=== PATIENT | male | born 1980 | race Caucasian/White ===

== ENCOUNTER → 2024-05-14 09:09 | Outpatient (CLI) | payer OTHER, SELFPAY ==
[2024-05-14 10:02] LABS: COVID-19 CEPHEID 4-PLEX PCR Negative (Negative); Influenza A - CEPHEID Flu A NEGATIVE (NEGATIVE); Influenza B - CEPHEID Flu B NEGATIVE (NEGATIVE); Respiratory Syncytial Virus Negative (Negative)
== END ==
PROVIDERS: Visit Provider Nurse Practitioner Family
DX: R05.1 Acute cough (principal); B34.9 Viral infection, unspecified; R50.9 Fever, unspecified; R42 Dizziness and giddiness; H53.8 Other visual disturbances
CPT/HCPCS: 0241U

== ENCOUNTER 2024-05-16 10:04 | Emergency (ER) | payer OTHER, SELFPAY ==
[2024-05-16 10:15] VITALS: BP 135/81; PULSE 88; RESP 16; TEMP 36.4; O2SAT 93; BMI 22.9
--- NOTE | 2024-05-16 12:36 | DI.RAD.S_ITS ---
PROCEDURE: XR CHEST 2V INDICATIONS: fever and cough x 1 week TECHNIQUE: 2 views of the chest were acquired. COMPARISON: None. FINDINGS: Surgical changes and devices: None. Lungs and pleura: Moderate diffuse lung disease particularly in the perihilar regions, greater on the left. No drainable effusions. Mediastinum: Normal heart size Bones and chest wall: Unremarkable IMPRESSION: Perihilar moderate lung disease, greater on the left, suspicious for pneumonia. Future imaging surveillance is recommended. Dictated by: Cody Wooten M.D. on 05/16/2024 at 12:52 Approved by: Cody Wooten M.D. on 05/16/2024 at 12:53
--- NOTE | 2024-05-16 12:37 | ED.URI ---
HPI - URI/Sore Throat <Amelia Lundberg PA-C - Last Filed: 05/16/24 16:27> General Chief Complaint: Upper Respiratory Symptoms Stated Complaint: Fever,cough Feeling worse Time Seen by Provider: 05/16/24 12:22 Source: patient Mode of arrival: Ambulatory History of Present Illness HPI Narrative: Mr. Faulkner is a pleasant 43 year old male with no reported PMHx who presents to the ED with cough and intermittent fever x 1 week. Pt was seen at the [facility] on Tuesday for the same symptoms and was diagnosed with viral URI, had a negative covid/flu swab, and was advised supportive care. Reports fever has resolved and he felt slightly better, but today he felt increasing fatigue and his dry cough has persisted. Reports his and daughter were also recently sick with URI's which have gotten better. He denies CP, abd pain, SOB, wheezing, pleuritic pain, vomiting, ear pain. He did have some loose stools which have gotten better. He took tylenol and ibu at 1015. Related Data Previous Rx's Medication Instructions Recorded cefdinir 300 mg capsule 300 mg PO Q12H #20 caps 05/18/24 doxycycline hyclate 100 mg capsule 100 mg PO BID #10 caps 05/18/24 Allergies Allergy/AdvReac Type Severity Reaction Status Date / Time No Known Drug Allergies Allergy Verified 05/18/24 10:33 Review of Systems <Amelia Lundberg PA-C - Last Filed: 05/16/24 16:27> Constitutional Constitutional: Denies chills Eyes Eyes: Denies change in vision ENT Ears, Nose, Mouth, and Throat: Denies change in voice, Denies sore throat and Denies throat swelling Cardiovascular Cardiovascular: Denies chest pain, Denies rapid heart rate, Denies edema, Denies irregular heart rhythm, Denies leg edema, Denies lightheadedness, Denies dyspnea and Denies dyspnea on exertion Respiratory Respiratory: Reports cough, Denies hemoptysis, Denies pain on inspiration, Denies dyspnea, Denies dyspnea on exertion, Denies stridor and Denies wheezing Gastrointestinal Gastrointestinal: Denies abdominal pain Integumentary/Breasts Skin/Breast: Denies rash Allergic/Immunologic Allergic/Immunologic: Denies throat swelling and Denies wheezing Patient History <Amelia Lundberg PA-C - Last Filed: 05/16/24 16:27> Social History Smoking Status: Never smoker Smoking Status: Never smoker alcohol intake frequency: holidays/special occasions only Substance Use Type: does not use Exam <Amelia Lundberg PA-C - Last Filed: 05/16/24 16:27> Initial Vital Signs Initial Vital Signs: Vital Signs Temperature 97.5 F L 05/16/24 10:15 Pulse Rate 88 05/16/24 10:15 Respiratory Rate 16 05/16/24 10:15 Blood Pressure 135/81 05/16/24 10:15 Pulse Oximetry 93 05/16/24 10:15 Oxygen Delivery Method Room Air 05/16/24 10:15 VS reviewed, WNL except for 93% O2 on room air. Const General: cooperative, healthy appearing, comfortable, well developed and well groomed HENNV Head: normal to inspection, normocephalic and atraumatic Ears: hearing grossly normal bilaterally Nose: external nose normal Face and sinus: normal facial exam, sinuses nontender and face symmetric Mouth: oral mucosae normal and moist mucous membranes Throat: posterior oropharynx normal and uvula midline Eyes Conjunctivae: conjunctivae normal Neck Neck: normal visual inspection, full ROM, No anterior neck swelling and No lymphadenopathy Chest Chest: normal inspection of the chest Resp Effort & Inspection: normal respiratory effort, able to speak in complete sentences, no audible wheezes, cough, respiratory effort not decreased, not labored, no nasal flaring, no pursed lip breathing, no respiratory distress, no tripod positioning, no use of accessory muscles and No prolonged expiratory phase Auscultation: breath sounds present Other: mild expiratory course breath sounds BL LL Cardio Rate: regular rate Rhythm: regular rhythm Skin General: no rashes or lesions noted <Olimpia Saba DO - Last Filed: 05/21/24 14:33> Initial Vital Signs Initial Vital Signs: Vital Signs Temperature 97.5 F L 05/16/24 10:15 Pulse Rate 88 05/16/24 10:15 Respiratory Rate 16 05/16/24 10:15 Blood Pressure 135/81 05/16/24 10:15 Pulse Oximetry 93 05/16/24 10:15 Oxygen Delivery Method Room Air 05/16/24 10:15 Course <Amelia Lundberg PA-C - Last Filed: 05/16/24 16:27> Orders Ordered: ED Orders 05/16/24 12:36 XR chest 2V Stat Vital Signs Vital signs: Vital Signs - 8 hr 05/16/24 10:15 05/16/24 13:21 Temperature 97.5 F L Pulse Rate 88 82 Respiratory Rate 16 20 Blood Pressure 135/81 109/67 Pulse Oximetry 93 93 Oxygen Delivery Method Room Air Room Air <Olimpia Jazmin Saba DO - Last Filed: 05/21/24 14:33> Orders Ordered: ED Orders 05/16/24 12:36 XR chest 2V Stat Vital Signs Vital signs: Vital Signs - 8 hr 05/16/24 10:15 05/16/24 13:21 Temperature 97.5 F L Pulse Rate 88 82 Respiratory Rate 16 20 Blood Pressure 135/81 109/67 Pulse Oximetry 93 93 Oxygen Delivery Method Room Air Room Air MDM - URI/Sore Throat <Amelia Lundberg PA-C - Last Filed: 05/16/24 16:27> Medical Records Attestation: I reviewed the patient's medical records. Imaging Data Chest x-ray: My Impression: BL perihilar infiltrates Radiologist's Impression: IMPRESSION: Perihilar moderate lung disease, greater on the left, suspicious for pneumonia. Future imaging surveillance is recommended. [facility] Narrative Medical decision making narrative: 43 year old male with no reported PMHx who presents to the ED with cough and intermittent fever x 1 week. DDx includes but is not limited to: pneumonia, viral URI, pleural effusion, bronchitis, etc. On exam pt is in NAD, 93% O2 on RA, afebrile, not tachycardic. Mild expiratory BL LL course breath sounds. No LE edema. Covid/flu neg on 05/14. Will proceed with chest XR. Chest x-ray confirms pneumonia. Patient's vital signs remained stable. We will treat with doxycycline 100 mg b.i.d. x5 days for community-acquired pneumonia with no underlying lung disease, recent hospitalization, or smoking history. Advised Motrin/ Tylenol if needed for pain /fever, and previously prescribed Tessalon Perles if needed for cough. Patient understands to follow up with his primary care doctor and that he will need a repeat chest x-ray to confirm resolution of pneumonia in the future. Discussed strict ED return precautions. Patient understanding of plan and stable for discharge home. Discharge Plan Departure Patient Disposition: Home Clinical Impression: Pneumonia Qualifiers: Pneumonia type: due to unspecified organism Laterality: bilateral Lung location: unspecified part of lung Qualified Code(s): J18.9 - Pneumonia, unspecified organism Cough Qualifiers: Cough type: acute Qualified Code(s): R05.1 - Acute cough Instructions: DI for Pneumonia -- Adult Activity Restrictions/Additional Instructions: Today you were diagnosed with pneumonia. Please complete the full course of antibiotics and follow up with your primary care doctor within the next week. You will need a repeat chest XR to confirm infection has resolved / no other abnormalities as determined by your PCP. Please return to the ER if you develop any new or worsening symptoms, trouble breathing, chest pain, or other concerns. Prescriptions: No Action doxycycline hyclate 100 mg capsule 100 mg PO BID Qty: 10 0RF cefdinir 300 mg capsule 300 mg PO Q12H Qty: 20 0RF Referrals: Miscellaneous,MD Miriam [Primary Care Provider] - Stand Alone Forms: Patient Portal/API/Survey ED Sign-out <Olimpia Saba DO - Last Filed: 05/21/24 14:33> Cosign ED Attending Cosjerardoature Attestation: I was immediately available in the department for consultation.
[2024-05-16 13:21] VITALS: BP 109/67; PULSE 82; RESP 20; O2SAT 93
== END 2024-05-16 14:08 | disposition home or self-care (01) ==
PROVIDERS: Emergency Provider Physician Assistant
DX: J18.9 Pneumonia, unspecified organism (principal); R05.1 Acute cough
CPT/HCPCS: 71046; 99283

== ENCOUNTER 2024-05-18 10:19 | Emergency (ER) | payer OTHER, SELFPAY ==
[2024-05-18] VITALS (9 sets, daily range): BP systolic 113–143; BP diastolic 73–90; PULSE 77–110; RESP 16–28; TEMP 36.8; O2SAT 94–96; BMI 22.9
--- NOTE | 2024-05-18 10:38 | ED_ITS ---
HPI - SOB/Dyspnea General Chief Complaint: Shortness of Breath/Dyspnea Stated Complaint: hx pneumonia, SOB Time Seen by Provider: 05/18/24 10:37 Source: patient Mode of arrival: Wheelchair Limitations: no limitations History of Present Illness HPI Narrative: Patient is a 43-year-old healthy male who presents today with increasing shortness of breath. Was diagnosed with pneumonia on May 16 by x-ray discharged home with doxycycline for 5 days. Failure he reports that they have been his oxygen level and have noted that his oxygen levels 86-89% while lying down and it does go up when he sits upright. He just generally feels fatigued and weak. No nausea or vomiting. Other family members are sick as well but overall getting better. Patient also reports that he traveled 3 weeks ago to [place]. No prior history of blood clots. Had a 4 pack COVID influenza RSV test 2 days ago was negative. Related Data Previous Rx's Medication Instructions Recorded doxycycline hyclate 100 mg capsule 100 mg PO BID 5 days #10 caps 05/16/24 cefdinir 300 mg capsule 300 mg PO Q12H #20 caps 05/18/24 doxycycline hyclate 100 mg capsule 100 mg PO BID #10 caps 05/18/24 Allergies Allergy/AdvReac Type Severity Reaction Status Date / Time No Known Drug Allergies Allergy Verified 05/18/24 10:33 Patient History Social History Smoking Status: Never smoker Smoking Status: Never smoker alcohol intake frequency: holidays/special occasions only Substance Use Type: does not use Exam Initial Vital Signs Initial Vital Signs: Vital Signs Temperature 98.3 F 05/18/24 10:30 Pulse Rate 92 H 05/18/24 10:30 Respiratory Rate 16 05/18/24 10:30 Blood Pressure 143/90 H 05/18/24 10:30 Pulse Oximetry 94 05/18/24 10:30 Oxygen Delivery Method Room Air 05/18/24 10:30 GENERAL: Alert 43-year-old male appears to not feel well and in no acute distress. HEENT: Head atraumatic,EOMI, pupils reactive, face symmetric, moist mucous membranes CARDIOVASCULAR: Regular rate and rhythm without murmurs, rubs or gallops. RESPIRATORY: No tachypnea mild rales at bases no wheezing ABDOMEN: Soft, nontender. Normoactive bowel sounds all 4 quadrants. No guarding or rebound. EXTREMITIES: Normal range of motion, no clubbing or edema. Neurovascularly intact NEUROLOGICAL: Alert and oriented x4.Normal gait and speech. SKIN: Warm, dry, no laceration, no petechiae, no rashes or lesions. Course Orders Ordered: ED Orders 05/18/24 10:53 Chest [XR chest 1V] Stat 05/18/24 11:04 BNP [NT-proBNP (BNP-Adult 18+)] Stat CBC Auto Diff [Complete Blood Count AUTO DIFF] Stat CMP [Comprehensive Metabolic Panel] Stat D Dimer Stat Lactate (Lactic Acid) Stat Procalcitonin Stat Troponin & CK Cardiac Panel Stat 05/18/24 11:20 Blood Culture Stat 05/18/24 11:33 CT angio chest PE protocol Stat Discontinued Medications Cefdinir (Cefdinir 300 Mg Capsule) 300 mg PO NOW ONE Stop: 05/18/24 12:57 Last Admin: 05/18/24 13:04 Dose: 300 mg Documented By: TC Vital Signs Vital signs: Vital Signs - 8 hr 05/18/24 10:30 05/18/24 10:30 05/18/24 10:40 Temperature 98.3 F Pulse Rate 92 H 88 110 H Respiratory Rate 16 28 H Blood Pressure 143/90 H Pulse Oximetry 94 95 94 Oxygen Delivery Method Room Air 05/18/24 11:00 05/18/24 11:00 05/18/24 11:30 Temperature Pulse Rate 79 Respiratory Rate Blood Pressure 116/74 120/81 Pulse Oximetry 94 Oxygen Delivery Method 05/18/24 11:30 05/18/24 11:59 05/18/24 11:59 Temperature Pulse Rate 81 77 Respiratory Rate 19 Blood Pressure 121/73 Pulse Oximetry 94 96 Oxygen Delivery Method 05/18/24 12:00 05/18/24 12:00 05/18/24 12:30 Temperature Pulse Rate 79 Respiratory Rate 19 Blood Pressure 120/73 113/74 Pulse Oximetry 95 Oxygen Delivery Method 05/18/24 12:30 05/18/24 13:00 05/18/24 13:00 Temperature Pulse Rate 78 77 Respiratory Rate 22 17 Blood Pressure 130/76 Pulse Oximetry 95 95 Oxygen Delivery Method 05/18/24 13:15 Temperature Pulse Rate 77 Respiratory Rate 17 Blood Pressure 130/76 Pulse Oximetry 95 Oxygen Delivery Method Room Air MDM - SOB/Dyspnea Lab Data 05/18/24 11:04 05/18/24 11:04 Labs: Lab Results 05/18/24 Range/Units 11:04 WBC 7.5 (4.5-11.0) X10^3/uL RBC 4.43 L (4.5-5.9) X10^6/uL Hgb 13.0 L (13.5-17.5) g/dL Hct 39.0 L (41-53) % MCV 87.9 (80-100) fL MCH 29.4 (26-34) PG MCHC 33.4 (30-36) % RDW 13.4 (11.6-14.8) % Plt Count 237 (150-400) X10^3/uL Neut % (Auto) Not Reportable Lymph % (Auto) Not Reportable [place] % (Auto) Not Reportable Eos % (Auto) Not Reportable Baso % (Auto) Not Reportable Lymph # (Auto) Not Reportable [place] # (Auto) Not Reportable Baso # (Auto) Not Reportable Total Counted 100 Seg Neutrophils % 55.0 (38-70) % Band Neutrophils % 6.0 (3-7) % Lymphocytes % (Manual) 26.0 (25-45) % Monocytes % (Manual) 4.0 (2-11) % Eosinophils % (Manual) 2.0 (2-4) % Metamyelocytes % 5.0 H (-0) % Myelocytes % 2.0 H (-0) % Neutrophils # (Manual) 4575 (9402-3707) /uL RBC Morphology See below Polychromasia 1+ H D-Dimer 1145 H (<500) ng/ml Sodium 138 (137-145) mmol/L Potassium 4.6 (3.4-5.1) mmol/L Chloride 101 (98-107) mmol/L Carbon Dioxide 31 (22-32) mmol/L BUN 5 L (9-20) mg/dL Creatinine 0.62 L (0.66-1.25) mg/dL Estimated GFR > 60 (>60) mL/min BUN/Creatinine Ratio 8.1 (6-22) Glucose 87 (70-100) mg/dL Lactate 1.5 (0.7-2.1) mmol/L Calcium 8.8 (8.4-10.2) mg/dL Total Bilirubin 0.3 (0.2-1.3) mg/dL AST 112 H (17-59) IU/L ALT 104 H (<50) IU/L Alkaline Phosphatase 118 (38-126) U/L Total Creatine Kinase 1507 H (55-170) U/L Troponin I < 0.012 (0.01-0.034) ng/mL NT-Pro-B Natriuret Pep 38 (<125) pg/mL Total Protein 7.7 (6.3-8.2) g/dL Albumin 3.7 (3.5-5.0) g/dL Globulin 4.0 (1.7-4.1) g/dL Albumin/Globulin Ratio 0.9 L (1.0-2.8) Procalcitonin 0.244 (<0.5) ng/mL Imaging Data Chest x-ray: Radiologist's Impression: PROCEDURE: XR CHEST 1V INDICATIONS: Pneumonia TECHNIQUE: One view of the chest was acquired. COMPARISON: [facility], , XR CHEST 2V, 05/16/2024, 12:38. FINDINGS: Surgical changes and devices: None. Lungs and pleura: Stable findings. Bilateral perihilar interstitial infiltrates and patchy diffuse interstitial infiltrates. Patchy bibasilar atelectasis. No pleural effusions or pneumothorax. Mediastinum: Mediastinal contours appear normal. Heart size is normal. Bones and chest wall: No suspicious bony lesions. Overlying soft tissues appear unremarkable. IMPRESSION: Findings suggest probable bilateral pneumonia, possibly viral. No significant change compared to yesterday. Comment: Progress films are recommended until clear. Dictated by: Mike Menendez M.D. on 05/18/2024 at 11:25 Approved by: Mike Menendez M.D. on 05/18/2024 at 11:2 CT scan - chest: Radiologist's Impression: PROCEDURE: CT ANGIO CHEST PE PROTOCOL INDICATIONS: high dimer with hypoxia TECHNIQUE: After the administration of intravenous contrast, 2 mm thick sections acquired from the pulmonary apices to the posterior costophrenic angles. 3-dimensional maximum intensity projection (MIP) coronal and sagittal reformats were then acquired through the thorax. For radiation dose reduction, the following was used: automated exposure control, adjustment of mA and/or kV according to patient size. COMPARISON: None. FINDINGS: Image quality: Diagnostic. Pulmonary arteries: Pulmonary arteries are normal in size, and demonstrate no intraluminal filling defects to suggest central pulmonary embolism. Lower Neck: No enlarged lymph nodes. Thyroid: No thyroid nodules which require sonographic follow up, per consensus guidelines. Axillae: No enlarged lymph nodes. Chest Wall: Unremarkable. Bones: Unremarkable. Lungs and Pleura: No pneumothorax or pleural effusions. There are extensive very subtle bilateral peribronchial early areas of ground-glass opacity and more confluent airspace consolidation. There are patchy focal dense areas of airspace consolidation in the right middle lobe and posterior basal portions of the lower lobes. Heart: Heart size is normal. No pericardial effusion. Thoracic Vessels: No aortic aneurysm. Mediastinum and Sherry: Symmetric mediastinal and hilar lymph nodes, none of which are abnormally sized. Findings are nonspecific, but can potentially suggest sarcoidosis. Esophagus: No wall thickening. No hiatal hernia. Upper Abdomen: Visualized upper abdomen solid organs and bowel loops appear normal. IMPRESSION: 1. No pulmonary emboli. 2. Symmetric mediastinal and hilar adenopathy, nonspecific, but potentially can indicate sarcoidosis. 3. Extensive ill-defined peribronchial infiltrates and focal more dense consolidation predominantly in the posterior basal left lower lobe but also in the right lower lobe basilar portion and focally in the right middle lobe. Consider diffuse bacterial or viral pneumonia. Consider hypersensitivity pneumonitis. Comment: Recommend consultation with a medical equipment repairer. Comment: Findings were discussed with Dr. Rasmussen on 05/18/2024 at 1227 hours Dictated by: Mike Menendez M.D. on 05/18/2024 at 12:14 MDM Narrative Medical decision making narrative: MDM CC: Cough shortness of breath weakness Complicating co-morbidities: Healthy male diagnosed with pneumonia Medical records reviewed: Previous ED visit on 05/16/2024 had viral panel that was negative had chest x-ray which showed pneumonia started on doxycycline Differential considered: Pneumonia pulmonary embolism congestive heart failure sepsis Exam documented above, pertinent findings include: Patient appears to not feel well but is not toxic he has some crackles bilaterally but no significant tachypnea or conversational dyspnea Lab Test results independently reviewed as above. Pertinent findings: WBC 7.5, lactate 1.5, procalcitonin 0.244 D-dimer 1145 Potassium 4.6 creatinine 0.62 Bilirubin 0.3 AST 112 ALT 104 alk-phos 118 CPK 1507 Troponin negative, BNP 38 Imaging studies independently reviewed: Chest x-ray confirmed pneumonia CT shows no pulmonary embolus bilateral pneumonia with perihilar lymphadenopathy concerning for possible sarcoidosis Consultations: None Treatments: Cefdinir Re-evaluations: Patient ambulated to the restroom without hypoxia afterwards no significant dyspnea Discussion: Patient 43-year-old male presenting today with cough fatigue and hypoxia. He has not hypoxic tachycardic or tachypneic in the ED. He does have pneumonia on x-ray. However he has no evidence of sepsis he has no leukocytosis elevated lactate or significantly elevated procalcitonin.. D-dimer was noted to be significantly elevated at 1145 CT chest was ordered. Does show significant perihilar lymphadenopathy concerning for pneumonia versus sarcoidosis. But he does have extensive bilateral pneumonia as well. Patient is also noted to have elevated CPK 1500 with mild elevation of AST ALT. Bilirubin is within normal limits and no right upper quadrant pain Patient does have some mild rhabdomyolysis he is drinking fluids need IV shortage of fluids getting IV. Discussed with patient to increase p.o. intake will start him on cefdinir with combination doxycycline for his pneumonia. At this time no need for admission. Encouraged him to return as needed. Also updated him on his lymph nodes noted on CT scan and recommended outpatient follow-up with pulmonology Discharge Plan Departure Patient Disposition: Home Clinical Impression: Community acquired pneumonia, Mediastinal adenopathy Instructions: DI for Pneumonia -- Adult Activity Restrictions/Additional Instructions: *You have been diagnosed with pneumonia *What to do: At this time you do have quite extensive pneumonia. You do have lymph nodes that may or may not be related to your pneumonia. It is recommended that you get referred to pulmonology once your infection has cleared to make sure these lymph nodes have improved. Please drink fluids you are showing signs of some muscle breakdown, recommend Gatorade or Gatorade like product *Continue to take medications as directed Doxycycline 100 mg twice a day for total of 10 days Cefdinir 300 mg twice a day for total of 10 days *Follow up with your primary care provider in 2-3 days or call [phone] *Return to ER if you should have increasing cough shortness of breath weakness muscle aches or any new, worsening or concerning symptoms Prescriptions: New doxycycline hyclate 100 mg capsule 100 mg PO BID Qty: 10 0RF cefdinir 300 mg capsule 300 mg PO Q12H Qty: 20 0RF No Action doxycycline hyclate 100 mg capsule 100 mg PO BID 5 Days Qty: 10 0RF Referrals: Miscellaneous,Doctor, MD [Primary Care Provider] - Stand Alone Forms: Patient Portal/API/Survey
--- NOTE | 2024-05-18 10:53 | DI.RAD.S_ITS ---
PROCEDURE: XR CHEST 1V INDICATIONS: Pneumonia TECHNIQUE: One view of the chest was acquired. COMPARISON: [facility], CR, XR CHEST 2V, 05/16/2024, 12:38. FINDINGS: Surgical changes and devices: None. Lungs and pleura: Stable findings. Bilateral perihilar interstitial infiltrates and patchy diffuse interstitial infiltrates. Patchy bibasilar atelectasis. No pleural effusions or pneumothorax. Mediastinum: Mediastinal contours appear normal. Heart size is normal. Bones and chest wall: No suspicious bony lesions. Overlying soft tissues appear unremarkable. IMPRESSION: Findings suggest probable bilateral pneumonia, possibly viral. No significant change compared to yesterday. Comment: Progress films are recommended until clear. Dictated by: Mike Menendez M.D. on 05/18/2024 at 11:25 Approved by: Mike Menendez M.D. on 05/18/2024 at 11:26
[2024-05-18 11:23] LABS: Mean Corpuscular HGB Conc 33.4 % (30-36); Mean Corpuscular Hemoglobin 29.4 PG (26-34); Mean Corpuscular Volume 87.9 fL (80-100); Platelet Count 237 X10^3/uL (150-400); Red Blood Cell Count 4.43 X10^6/uL (4.5-5.9); Red Cell Distribution Width 13.4 % (11.6-14.8); White Blood Cell Count 7.5 X10^3/uL (4.5-11.0)
[2024-05-18 11:24] LABS: Add Manual Diff / Slide Review YES
[2024-05-18 11:28] LABS: D Dimer 1145 ng/ml (<500)
[2024-05-18 11:29] LABS: Lactate (Lactic Acid) 1.5 mmol/L (0.7-2.1)
[2024-05-18 11:30] LABS: Alanine Aminotransferase 104 IU/L (<50); Albumin 3.7 g/dL (3.5-5.0); Albumin Globulin Ratio 0.9 (1.0-2.8); Alkaline Phosphatase 118 U/L (38-126); Aspartate Aminotransferase 112 IU/L (17-59); BUN Creatinine Ratio 8.1 (6-22); Bilirubin Total 0.3 mg/dL (0.2-1.3); Blood Urea Nitrogen 5 mg/dL (9-20); Calcium 8.8 mg/dL (8.4-10.2); Carbon Dioxide 31 mmol/L (22-32); Chloride 101 mmol/L (98-107); Creatine Kinase 1507 U/L (55-170); Estimated Glomerular Filt Rate > 60 mL/min (>60); Glucose 87 mg/dL (70-100); HEMOLYSIS < 15 (0-50); Potassium 4.6 mmol/L (3.4-5.1); Sodium 138 mmol/L (137-145); Total Protein 7.7 g/dL (6.3-8.2)
--- NOTE | 2024-05-18 11:33 | DI.CT.S_ITS ---
PROCEDURE: CT ANGIO CHEST PE PROTOCOL INDICATIONS: high dimer with hypoxia TECHNIQUE: After the administration of intravenous contrast, 2 mm thick sections acquired from the pulmonary apices to the posterior costophrenic angles. 3-dimensional maximum intensity projection (MIP) coronal and sagittal reformats were then acquired through the thorax. For radiation dose reduction, the following was used: automated exposure control, adjustment of mA and/or kV according to patient size. COMPARISON: None. FINDINGS: Image quality: Diagnostic. Pulmonary arteries: Pulmonary arteries are normal in size, and demonstrate no intraluminal filling defects to suggest central pulmonary embolism. Lower Neck: No enlarged lymph nodes. Thyroid: No thyroid nodules which require sonographic follow up, per consensus guidelines. Axillae: No enlarged lymph nodes. Chest Wall: Unremarkable. Bones: Unremarkable. Lungs and Pleura: No pneumothorax or pleural effusions. There are extensive very subtle bilateral peribronchial early areas of ground-glass opacity and more confluent airspace consolidation. There are patchy focal dense areas of airspace consolidation in the right middle lobe and posterior basal portions of the lower lobes. Heart: Heart size is normal. No pericardial effusion. Thoracic Vessels: No aortic aneurysm. Mediastinum and Sherry: Symmetric mediastinal and hilar lymph nodes, none of which are abnormally sized. Findings are nonspecific, but can potentially suggest sarcoidosis. Esophagus: No wall thickening. No hiatal hernia. Upper Abdomen: Visualized upper abdomen solid organs and bowel loops appear normal. IMPRESSION: 1. No pulmonary emboli. 2. Symmetric mediastinal and hilar adenopathy, nonspecific, but potentially can indicate sarcoidosis. 3. Extensive ill-defined peribronchial infiltrates and focal more dense consolidation predominantly in the posterior basal left lower lobe but also in the right lower lobe basilar portion and focally in the right middle lobe. Consider diffuse bacterial or viral pneumonia. Consider hypersensitivity pneumonitis. Comment: Recommend consultation with a store director. Comment: Findings were discussed with Dr. Rasmussen on 05/18/2024 at 1227 hours Dictated by: Mike Menendez M.D. on 05/18/2024 at 12:14 Approved by: Mike Menendez M.D. on 05/18/2024 at 12:27
[2024-05-18 11:42] LABS: NT-proBNP (BNP-Adult 18+) 38 pg/mL (<125); Troponin I < 0.012 ng/mL (0.01-0.034)
[2024-05-18 11:46] LABS: Procalcitonin 0.244 ng/mL (<0.5)
[2024-05-18 11:47] LABS: Neutrophils Absolute Manual 4575 /uL (3000-5900); Polychromasia 1+; Total Cells Counted 100
[2024-05-18] MEDS: CEFDINIR 300 MG CAPSULE PO (13:04)
== END 2024-05-18 13:16 | disposition home or self-care (01) ==
PROVIDERS: Emergency Provider Emergency Medicine
DX: J18.9 Pneumonia, unspecified organism (principal); R59.0 Localized enlarged lymph nodes
CPT/HCPCS: 36415; 71045; 71275; 80053; 82550; 83605; 83880; 84145; 84484; 85007; 85025; 85379; 87040; 99283; 99284

== ENCOUNTER → 2024-06-29 14:54 | Outpatient (CLI) | payer OTHER, SELFPAY ==
--- NOTE | 2024-06-29 14:55 | DI.RAD.S_ITS ---
PROCEDURE: XR CHEST 2V INDICATIONS: f/u pneumonia, coughing TECHNIQUE: 2 views of the chest were acquired. COMPARISON: [facility], CR, XR CHEST 1V, 05/18/2024, 10:56. [facility], CR, XR CHEST 2V, 05/16/2024, 12:38. FINDINGS: Surgical changes and devices: None. Lungs and pleura: Lungs are clear. No pleural effusions or pneumothorax. Mediastinum: Mediastinal contours are normal. Heart size is normal. Bones and chest wall: No suspicious bony abnormalities. Soft tissues appear unremarkable. IMPRESSION: No acute cardiopulmonary abnormality is seen. Dictated by: Luis Chiang M.D. on 06/29/2024 at 16:32 Approved by: Luis Chiang M.D. on 06/29/2024 at 16:33
== END ==
PROVIDERS: PCP Nurse Practitioner Family; Referring Provider Nurse Practitioner Family; Visit Provider Nurse Practitioner Family
DX: J18.9 Pneumonia, unspecified organism (principal); R05.9 Cough, unspecified
CPT/HCPCS: 71046

== ENCOUNTER → 2024-07-06 07:12 | Outpatient (CLI) | payer OTHER, SELFPAY ==
--- NOTE | 2024-07-06 08:05 | DI.CT.S_ITS ---
PROCEDURE: CT CHEST WO CON INDICATIONS: follow up for abnormal CT chest, likely viral PNA. TECHNIQUE: Noncontrast 5 mm thick sections acquired from the pulmonary apices to the posterior costophrenic angles. 1 mm lung window, 5 mm thick coronal and sagittal and 7 mm axial MIP reformats were then acquired. For radiation dose reduction, the following was used: automated exposure control, adjustment of mA and/or kV according to patient size. COMPARISON: None. FINDINGS: Image quality: Diagnostic. Lower Neck: No enlarged lymph nodes. Thyroid: No thyroid nodules which require sonographic follow up, per consensus guidelines. Axillae: No enlarged lymph nodes. Chest Wall: Unremarkable. Bones: Fracture involving the posterolateral left 9th rib with associated callus formation which is new from previous study. Lungs and Pleura: Interval resolution of multifocal ground-glass and airspace opacities throughout both lungs including medial left lower lobe consolidation seen on prior chest CT of 05/28/2024. Linear bands within both lower lobes likely scar versus atelectasis. No focal airspace opacity or consolidation. No suspicious pulmonary nodules or masses. No evidence of pneumothorax or pleural effusion. Heart: Heart size is normal. No pericardial effusion. Thoracic Vessels: The aorta and pulmonary arteries demonstrate normal size. Mediastinum and Sherry: No enlarged lymph nodes. Esophagus: No wall thickening. No hiatal hernia. Upper Abdomen: Visualized upper abdomen solid organs and bowel loops appear normal. IMPRESSION: Interval resolution of multifocal ground-glass and airspace opacities throughout both lungs including left lower lobe consolidation seen on prior chest CT of 05/18/2024 compatible with resolved infectious pneumonia. No acute process within the chest. Dictated by: Mulugeta Serrano M.D. on 07/06/2024 at 9:45 Approved by: Mulugeta Serrano M.D. on 07/06/2024 at 9:52
== END ==
PROVIDERS: PCP Nurse Practitioner Family; Referring Provider Student in an Organized Health Care Education/Training Program; Visit Provider Student in an Organized Health Care Education/Training Program
DX: R93.89 Abnormal findings on diagnostic imaging of other specified body structures (principal)
CPT/HCPCS: 71250